=== PATIENT | male | born 1960 | race Caucasian/White ===

== ENCOUNTER 2017-01-08 07:48 | Emergency (ER) | payer MEDICAID ==
[2014-11-14 12:48] VITALS: BMI 25.4
[~2017-01-08 07:48] MED LIST: ATROVENT HFA12.9 GM; CLEOCIN HCL300 MG PO; COMBIVENT RESPIM4 GM INH; FLOMAX0.4 MG PO; HUMULIN R100 U/ML; HYDROCODON-ACE1 EAC7 PO; INDERAL10 MG PO; LANTUS SOL100 UNIT/1 SC; LEVAQUIN500 MG PO; LIPITOR40 MG PO; NITROSTAT0.4 MG SL; PLAVIX75 MG PO; PROAIR HFA8.5 GM INH; PROVENTIL HFA6.7 GM INH
[2017-01-08 09:44] LABS: BASOPHILS 0.6 % (0-2); EOSINOPHILS 7.8 % (0-7); HEMATOCRIT 36.7 % (42.0-54.0); HEMOGLOBIN 13.1 g/dL (13.5-17.5); LYMPHOCYTES 14.7 % (15-50); MCH 34.1 pg (26.0-34.0); MCHC 35.7 g/dL (31.0-37.0); MCV 95.6 fL (80.0-100.0); MEAN PLATELET VOLUME 10.2 fL (7.4-10.4); MONOCYTES 12.2 % (2-11); NEUTROPHILS 64.7 % (40-80); PLATELET COUNT 78 10x3/uL (130-400); RBC 3.84 10x6/uL (4.20-6.10); RDW 12.4 % (11.5-14.5); WBC 3.2 10x3/uL (4.8-10.8)
[2017-01-08 10:06] LABS: ALBUMIN 2.6 g/dL (3.4-5.0); ALKALINE PHOSPHATASE 112 U/L (46-116); ALT (SGPT) 45 U/L (10-68); BILIRUBIN - TOTAL 1.16 mg/dL (0.2-1.3); C-REACTIVE PROTEIN 1.5 mg/dL (0.0-0.9); CALC OSMOLALITY 273 mosm/kg (275-300); CALCIUM 8.2 mg/dL (8.5-10.1); CARBON DIOXIDE 27.1 mmol/L (21.0-32.0); CHLORIDE - SERUM 102 mmol/L (98-107); CREATININE - SERUM 0.8 mg/dL (0.6-1.3); GLUCOSE 233 mg/dL (74-106); POTASSIUM - SERUM 3.4 mmol/L (3.5-5.1); PROTEIN - SERUM 8.1 g/dL (6.4-8.2); SODIUM 134 mmol/L (136-145); UREA NITROGEN 9 mg/dL (7-18); eGFR NON AFRICAN AMERICAN > 90 mL/min (90-120)
[2017-01-08 10:14] LABS: APPEARANCE CLOUDY (CLEAR); BILIRUBIN NEGATIVE (NEGATIVE); COLOR YELLOW (YELLOW); GLUCOSE 100 mg/dL (NEGATIVE); KETONE NEGATIVE (NEGATIVE); LEUKOCYTE ESTERASE TRACE (NEGATIVE); NITRITE NEGATIVE (NEGATIVE); PROTEIN NEGATIVE (NEGATIVE); SPECIFIC GRAVITY 1.015 (1.005-1.020); UROBILINOGEN NORMAL (NORMAL)
[2017-01-08 10:15] LABS: BACTERIA MANY /hpf (NONE SEEN); EPITHELIAL CELLS 0-5 /hpf (0-5); RED CELLS - URINE NONE SEEN /hpf (0-5); WHITE CELLS - URINE 0-5 /hpf (0-5)
== END 2017-01-08 11:06 | disposition home or self-care (01) ==
LOC: D.ER 07:48
PROVIDERS: Emergency Medicine
DX: M54.5 Low back pain (principal); K62.89 Other specified diseases of anus and rectum; E87.6 Hypokalemia; E11.65 Type 2 diabetes mellitus with hyperglycemia; Z79.4 Long term (current) use of insulin; N41.9 Inflammatory disease of prostate, unspecified; I10 Essential (primary) hypertension; F17.200 Nicotine dependence, unspecified, uncomplicated

== ENCOUNTER 2017-01-16 16:30 | Emergency (ER) | payer MEDICAID ==
[2014-11-14 12:48] VITALS: BMI 25.4
[2017-01-16 17:42] LABS: BASOPHILS 0 % (0-2); EOSINOPHILS 3.1 % (0-7); HEMATOCRIT 39.6 % (42.0-54.0); HEMOGLOBIN 13.9 g/dL (13.5-17.5); IMMATURE GRANULOCYTES 0.4 % (0-5); LYMPHOCYTES 14.8 % (15-50); MCH 34.2 pg (26.0-34.0); MCHC 35.1 g/dL (31.0-37.0); MCV 97.3 fL (80.0-100.0); MEAN PLATELET VOLUME 10.7 fL (7.4-10.4); NEUTROPHILS 68.7 % (40-80); PLATELET COUNT 88 10x3/uL (130-400); RBC 4.07 10x6/uL (4.20-6.10); RDW 12.7 % (11.5-14.5); WBC 2.2 10x3/uL (4.8-10.8)
[2017-01-16 17:50] LABS: APPEARANCE CLEAR (CLEAR); BILIRUBIN NEGATIVE (NEGATIVE); COLOR YELLOW (YELLOW); GLUCOSE NEGATIVE (NEGATIVE); KETONE NEGATIVE (NEGATIVE); LEUKOCYTE ESTERASE NEGATIVE (NEGATIVE); NITRITE NEGATIVE (NEGATIVE); PROTEIN NEGATIVE (NEGATIVE); SPECIFIC GRAVITY 1.005 (1.005-1.020); UROBILINOGEN NORMAL (NORMAL)
[2017-01-16 18:18] LABS: ALBUMIN 2.8 g/dL (3.4-5.0); ANION GAP 17.4 mmol/L (8-16); BILIRUBIN - TOTAL 0.79 mg/dL (0.2-1.3); CARBON DIOXIDE 19.6 mmol/L (21.0-32.0); CREATININE - SERUM 1.1 mg/dL (0.6-1.3); PROTEIN - SERUM 8.2 g/dL (6.4-8.2)
== END 2017-01-16 19:57 | disposition home or self-care (01) ==
LOC: D.ER 16:30
PROVIDERS: Emergency Medicine
DX: K59.00 Constipation, unspecified (principal); R10.9 Unspecified abdominal pain; K75.9 Inflammatory liver disease, unspecified; I10 Essential (primary) hypertension; E11.9 Type 2 diabetes mellitus without complications; Z79.4 Long term (current) use of insulin; R51 Headache; R11.2 Nausea with vomiting, unspecified; F17.200 Nicotine dependence, unspecified, uncomplicated

== ENCOUNTER 2017-12-09 08:52 | Outpatient (CLI) | payer MEDICAID ==
[~2017-12-09] VITALS: Ht 165.1 cm; Wt 75.5 kg
[2017-12-09 09:15] LABS: BASOPHILS 0.2 % (0-2); EOSINOPHILS 0.5 % (0-7); HEMATOCRIT 33.3 % (42.0-54.0); HEMOGLOBIN 11.7 g/dL (13.5-17.5); IMMATURE GRANULOCYTES 0.2 % (0-5); LYMPHOCYTES 12.2 % (15-50); MCH 30.7 pg (26.0-34.0); MCHC 35.1 g/dL (31.0-37.0); MCV 87.4 fL (80.0-100.0); MONOCYTES 5.2 % (2-11); NEUTROPHILS 81.7 % (40-80); RBC 3.81 10x6/uL (4.20-6.10); RDW 17.3 % (11.5-14.5); WBC 4.3 10x3/uL (4.8-10.8)
[2017-12-09 09:16] LABS: PLATELET COUNT 134 10x3/uL (130-400)
[2017-12-09 09:24] LABS: INR 1.72 (0.85-1.17); PROTIME 19.6 SECONDS (11.6-15.0)
[2017-12-09 09:26] LABS: CALC OSMOLALITY 250 mosm/kg (275-300); CARBON DIOXIDE 26.1 mmol/L (21.0-32.0); CHLORIDE - SERUM 92 mmol/L (98-107); CREATININE - SERUM 0.8 mg/dL (0.6-1.3); GLUCOSE 125 mg/dL (74-106); POTASSIUM - SERUM 3.8 mmol/L (3.5-5.1); SODIUM 124 mmol/L (136-145); UREA NITROGEN 12 mg/dL (7-18); eGFR NON AFRICAN AMERICAN > 90 mL/min (90-120)
[2017-12-09] MEDS ORDERED: PROTONIX40 MG PO (10:07)
[2017-12-09] MEDS ORDERED: DILAUDID4 MG PO (10:08)
[2017-12-09] MEDS ORDERED: DURAGESIC1 PATCH .7 TRANSDERM (10:09)
[2017-12-09] MEDS ORDERED: ALDACTONE100 MG PO (10:11)
[2017-12-09] MEDS ORDERED: CARAFATE1 G PO (10:13)
[2017-12-09 10:29] VITALS: BP 124/69; Ht 165.1 cm; Wt 75.5 kg
== END 2017-12-09 16:35 | disposition home or self-care (01) ==
LOC: D.SP 08:52
PROVIDERS: General Practice
DX: K74.60 Unspecified cirrhosis of liver (principal); R18.8 Other ascites; Z01.812 Encounter for preprocedural laboratory examination

== ENCOUNTER 2018-01-05 07:21 | Outpatient (CLI) | payer MEDICAID ==
[~2018-01-05] VITALS: Ht 165.1 cm; Wt 72.7 kg
--- NOTE | ~2018-01-05 | HEMODYNAMI ---
PATIENT:ESTRELLA JAMES JR MEDICAL RECORD: [id number] : 58 LOCATION:[facility] ADMISSION DATE: 01/05/18 Generatedon:01/05/201811:57 Patient name: ESTRELLA JAMES Patient #: [id number] SSN: : 1960 Date of study: 01/05/2018 Page: Of Hemodynamic Procedure Report Patient Data Patient Demographics Procedure consent was obtained First Name: ESTRELLA Gender: Male Last Name: JACOB Suffix: [facility] Initial: Casimiro : 1960 Patient #: [id number] Age: 57 year(s) Race: Unknown Additional ID: [id number] Contact details [address]: [address] [place] [address] State: [place] City: [place] Zip code: [address] Past Medical History Allergies Allergen Reaction Date Comments Reported Penicillins 01/05/2018 Admission Admission Data Admission Date: 01/05/2018 Admission Time: 7:21 Procedure Procedure Types Cath Procedure Peripheral Cath Diagnostic Procedure Cath Peripheral Miscellaneous PARACENTESIS WITH GUIDE Procedure Description Procedure Date Procedure Date: 01/05/2018 Procedure Start Time: 11:23 Procedure Staff Name Function Unique Bowen MD Performing Physician Melissa Vela RT Crane Chaser Maggie Lima RN Nurse Procedure Medications Medication Administration Route Dosage Oxygen etCO2 Nasal cannula 4 l/min Lidocaine 1% added to field 20 Fentanyl I.V. 50 mcg Fentanyl I.V. 50 mcg Fentanyl I.V. 50 mcg Fentanyl I.V. 50 mcg Hemodynamics Rest Pre Cath Intra NCS Post Cath Vital Signs Time Heart Resp SPO2 etCO2 NIBP (mmHg) Rhythm Pain Sedation Rate (ipm) (%) (mmHg) Status Level (bpm) 11:22:41 97 12 99 27.8 129/77(104) NSR 0 (11) 9(A) , No pain 11:26:51 98 13 98 24 134/75(106) NSR 0 (11) 9(A) , No pain 11:31:01 97 34 98 19.5 132/75(98) NSR 0 (11) 9(A) , No pain 11:35:11 95 98 26.3 131/74(104) NSR 0 (11) 9(A) , No pain 11:39:19 96 12 98 24.8 129/75(103) NSR 0 (11) 9(A) , No pain 11:43:27 96 11 98 27.1 126/77(100) NSR 0 (11) 9(A) , No pain 11:47:33 97 11 98 25.5 126/76(95) NSR 0 (11) 9(A) , No pain 11:51:38 99 15 97 23.3 132/79(102) NSR 0 (11) 9(A) , No pain 11:55:48 97 10 98 30.8 124/72(102) NSR 0 (11) 9(A) , No pain Medications Time Medication Route Dose Verified Delivered Reason Notes Effectiven ess by by 11:22:04 Oxygen etCO2 4 M J Andrés Serrano Per Nasal l/min MD Clarence CHAVEZ protocol cannula 11:22:15 Lidocaine added 20ml M J Long M J Long Per 1% to vial MD HARDIN protocol field 11:25:00 Fentanyl I.V. 50 M J Long Maggie for ashtyn Lima RN sedation 11:28:20 Fentanyl I.V. 50 M J Long Maggie for ashtyn Lima RN sedation 11:31:58 Fentanyl I.V. 50 M J Long Maggie for ashtyn Lima RN sedation 11:40:52 Fentanyl I.V. 50 M J Long Maggie for ashtyn Lima RN sedation Procedure Log Time Note 11:01:00 CONNECTING TUBE FOR DRAINAGE BAG ([id number]) opened to sterile field. 11:01:01 [id number] 8FR CATH DRAIN TRAY opened to sterile field. 11:01:07 - 11:01:28 Time tracking: Regular hours (M-F 7:00 - 5:00) 11:02:15 Plan of Care:Hemodynamics will remain stable., Cardiac rhythm will remain stable., Comfort level will be maintained., Respiratory function will remain adequate., Patient/ family verbilizes understanding of procedure., Procedure tolerated without complication., Recovers from procedure without complications.. 11:02:23 Patient received from Outpatients to IR Alert and oriented. Tansferred to table in Supine position. 11:02:25 Correct patient and procedure confirmed by team. 11:02:27 Signed procedure consent form obtained from patient. 11:02:36 Pre-procedure instructions explained to patient. 11:02:37 Pre-op teaching completed and patient verbalized understanding. 11:02:39 Family unavailable. 11:02:43 Patient NPO since Midnight. 11:02:59 Patient allergic to Penicillins 11:03:04 - 11:14:28 ----Pre-sedation anethsthesia assessment.---- 11:14:31 Previous problem with sedation/anesthesia? No ? 11:14:34 Snore? Yes 11:14:36 Sleep apnea? No 11:14:38 Deviated septum? No 11:14:40 Opens mouth fully? Yes 11:14:42 Sticks out tongue? Yes 11:14:46 Airway obstruction? No ? but yes to heart disease 11:14:50 Dentures? No ? 11:15:36 Right abdomen area was prepped with chlora-prep and draped in sterile fashion 11::47 Vital chart was started 11:22:04 Oxygen 4 l/min etCO2 Nasal cannula was administered by Maggie Lima RN; Per protocol; 11::15 Lidocaine 1% 20ml vial added to field was administered by Unique Bowen MD; Per protocol; ::28 Physician arrived 11::40 --------ALL STOP TIME OUT------ 11::41 Final Timeout: patient, procedure, and site verified with staff and physician. All members of the team are in agreement. ::03 Procedure started. 11:23:03 Full Disclosure recording started 11:23:09 Local anesthetic to Abdominal area with Lidocaine 1% by Unique Bowen MD.INITIAL ACCESS ONLY 11:25:00 Fentanyl 50 mcg I.V. was administered by Maggie Lima RN; for sedation; 11:28:20 Fentanyl 50 mcg I.V. was administered by Maggie Lima RN; for sedation; 11:31:58 Fentanyl 50 mcg I.V. was administered by Maggie Lima RN; for sedation; 11:40:52 Fentanyl 50 mcg I.V. was administered by Maggie Lima RN; for sedation; 11:56:00 5.3 liters drained from abdomen 11:56:14 Dermabond Pen opened to sterile field. 11:56:33 Tegaderm 4 x 4 ([id number]) opened to sterile field. 11:56:48 Procedure ended.(Physican Out) 11:56:51 Procedure and supply charges have been captured, reviewed, submitted an d are correct. 11:56:54 Report given to Outpatients. 11:57:46 Vital chart was stopped Device Usage Item Name Manufacture Quantity Catalog Hospital Part Current Mini mal Lot# / Number Charge Number Stock Stock Serial# Code CONNECTING TUBE Sunburst 1 [id number] 5 FOR DRAINAGE Scientific BAG ([id number]) [id number] CareFusion 1 [id number] 5 8FR CATH DRAIN TRAY Dermabond Pen [place] 1 [id number] 5 Health Tegaderm 4 x 4 3M 1 [id number] 5 (1626W) Signature Audit [place] Stage Time Signature Unsigned Intra-Procedure 01/05/2018 Melissa Vela 11:57:44 AM RT(R) [id number] [place] [address]
[~2018-01-05 07:21] MED LIST changes: +ALDACTONE100 MG PO; +CARAFATE1 G PO; +DILAUDID4 MG PO; +DURAGESIC1 PATCH .7 TRANSDERM; +PROTONIX40 MG PO
[2018-01-05] MEDS ORDERED: ZOFRAN4 MG PO (09:40)
[2018-01-05 10:17] LABS: BASOPHILS 0.2 % (0-2); EOSINOPHILS 0 % (0-7); HEMATOCRIT 36.4 % (42.0-54.0); HEMOGLOBIN 12.8 g/dL (13.5-17.5); IMMATURE GRANULOCYTES 0.4 % (0-5); LYMPHOCYTES 6.9 % (15-50); MCH 30.2 pg (26.0-34.0); MCHC 35.2 g/dL (31.0-37.0); MCV 85.8 fL (80.0-100.0); MEAN PLATELET VOLUME 10.8 fL (7.4-10.4); MONOCYTES 5.9 % (2-11); NEUTROPHILS 86.6 % (40-80); PLATELET COUNT 149 10x3/uL (130-400); RBC 4.24 10x6/uL (4.20-6.10); RDW 17.6 % (11.5-14.5); WBC 5.4 10x3/uL (4.8-10.8)
[2018-01-05 10:22] VITALS: BP 126/67; Ht 165.1 cm; Wt 72.7 kg
[2018-01-05 10:30] LABS: APTT 32.6 SECONDS (22.8-39.4); INR 1.59 (0.85-1.17); PROTIME 18.5 SECONDS (11.6-15.0)
== END 2018-01-05 13:20 | disposition home or self-care (01) ==
LOC: D.SP 07:21 → D.CT 09:00 → D.SP 13:20
PROVIDERS: Radiology Vascular & Interventional Radiology
DX: K71.51 Toxic liver disease with chronic active hepatitis with ascites (principal)

== ENCOUNTER 2018-01-20 09:34 | Outpatient (CLI) | payer OTHER, MEDICAID ==
[~2018-01-20] VITALS: Ht 165.1 cm; Wt 72.7 kg
--- NOTE | ~2018-01-20 | HEMODYNAMI ---
PATIENT:ESTRELLA JAMES JR MEDICAL RECORD: [id number] : 58 LOCATION:[facility] ADMISSION DATE: 01/20/18 Generatedon:01/20/201813:50 Patient name: ESTRELLA JAMES Patient #: [id number] SSN: : 1960 Date of study: 01/20/2018 Page: Of Hemodynamic Procedure Report Patient Data Patient Demographics Procedure consent was obtained First Name: ESTRELLA Gender: Male Last Name: JACOB Suffix: [facility] Initial: Casimiro : 1960 Patient #: [id number] Age: 57 year(s) Race: Unknown Additional ID: [id number] Contact details Address: [address] [place] [address] State: [place] City: [place] Zip code: [address] Past Medical History Allergies Allergen Reaction Date Comments Reported Penicillins 01/05/2018 Penicillins 01/20/2018 Admission Admission Data Admission Date: 01/20/2018 Admission Time: 9:34 Procedure Procedure Types Cath Procedure Peripheral Cath Diagnostic Procedure Cath Peripheral Miscellaneous Pleurex Pleurex Cath Place w/ Imaging Procedure Description Procedure Date Procedure Date: 01/20/2018 Procedure Start Time: 13:21 Procedure Staff Name Function Sanchez Johns MD Performing Physician Melissa Vela RT Hepatology Physician Maggie Lima RN Nurse Romulo Parra RT Scrub Hanny Knapp RN Nurse Procedure Data Cath Procedure Fluoroscopy Diagnostic fluoroscopy Total fluoroscopy Time: 0.5 time: 0.5 min min Diagnostic fluoroscopy Total fluoroscopy dose: 19 dose: 19 mGy mGy Procedure Medications Medication Administration Route Dosage Lidocaine 1% added to field 20 Heparin Flush Bag added to field 1 bags (1000units/500ml NS) Fentanyl I.V. 50 mcg Fentanyl I.V. 50 mcg Hemodynamics Rest Heart Rate: 102 (bpm) Snapshots Pre Cath Intra NCS Post Cath Vital Signs Time Heart Resp SPO2 etCO2 NIBP (mmHg) Rhythm Pain Sedation Rate (ipm) (%) (mmHg) Status Level (bpm) 13:05:38 103 15 99 30 132/88(115) NSR 0 (11) 10(A) , No pain 13:09:41 103 10 99 30 143/94(116) NSR 0 (11) 10(A) , No pain 13:13:53 103 11 100 30 115/74(90) NSR 0 (11) 10(A) , No pain 13:17:57 101 11 100 30 110/71(87) NSR 0 (11) 10(A) , No pain 13:21:55 105 10 100 30 127/83(107) NSR 0 (11) 10(A) , No pain 13:25:58 106 14 100 30.7 134/85(105) NSR 0 (11) 10(A) , No pain 13:30:04 105 6 100 30.7 114/84(98) NSR 0 (11) 10(A) , No pain 13:34:04 104 10 100 30.7 110/78(105) NSR 0 (11) 10(A) , No pain 13:38:08 101 9 100 31.5 102/67(96) NSR 0 (11) 10(A) , No pain 13:42:07 101 8 100 31.4 107/68(88) NSR 0 (11) 10(A) , No pain 13:46:54 108 12 100 27.7 136/87(106) NSR 0 (11) 10(A) , No pain Medications Time Medication Route Dose Verified Delivered Reason Notes Effec tiveness by by 13:20:01 Lidocaine 1% added 20ml Sanchez Bradford used for to vial Andreas Johns procedure field MD HARDIN 13:20:12 Heparin Flush added 1 Sanchez Bradford used for Bag to bags Andreas Johns procedure (1000units/500ml field MD HARDIN NS) 13:26:00 Fentanyl I.V. 50 Sanchez Gamino for mcg Andreas Knapp RN sedation 13:38:13 Fentanyl I.V. 50 Sanchez Gamino for mcg Andreas Knapp RN sedation Procedure Log Time Note 12:24:00 Use device set IR Diagnostic 12:49:00 Time tracking: Regular hours (M-F 7:00 - 5:00) 12:49:24 Plan of Care:Hemodynamics will remain stable., Cardiac rhythm will remain stable., Comfort level will be maintained., Respiratory function will remain adequate., Patient/ family verbilizes understanding of procedure., Procedure tolerated without complication., Recovers from procedure without complications.. 12:49:32 Patient received from Outpatients to IR Alert and oriented. Tansferred to table in Supine position. 12:49:41 Signed procedure consent form obtained from guardian. 12:50:13 H&P Date Dictated: 01/20/2018 Within 30 days and on chart.. 12:50:22 Pre-procedure instructions explained to patient. 12:50:23 Pre-op teaching completed and patient verbalized understanding. 12:50:24 Pre-op teaching completed and patient verbalized understanding. 12:50:34 Family unavailable. 12:50:37 Patient NPO since Midnight. 12:50:46 Patient allergic to Penicillins 12:51:10 Snore? Yes 12:51:41 Patient diabetic? Yes. 12:51:53 Airway obstruction? Yes copd, cad 12:52:03 - 13:03:55 IV patent on arrival in right thumb with D5/.45%NaCl at KVO. 13:04:18 Right abdomen area was prepped with chlora-prep and draped in sterile fashion 13:04:34 ECG and BP/O2 sat monitors applied to patient. 13:04:36 Vital chart was started 13:04:38 Baseline sample Acquired. 13:04:42 Full Disclosure recording started 13:04:44 - 13:19:20 Physician arrived 13:20:01 Lidocaine 1% 20ml vial added to field was administered by Sanchez collier MD; used for procedure; 13:20:12 Heparin Flush Bag (1000units/500ml NS) 1 bags added to field was administered by Sanchez Johns MD; used for procedure; 13:20:40 --------ALL STOP TIME OUT------ 13:20:41 Final Timeout: patient, procedure, and site verified with staff and physician. All members of the team are in agreement. 13:21:03 Procedure started. 13:21:09 Local anesthetic to Abdominal area with Lidocaine 1% by Sanchez Johns MD.INITIAL ACCESS ONLY 13:22:43 PLEURX PLEURAL cath system ([id number]) opened to sterile field. 13:22:44 Tegaderm 4 x 4 (1626W) opened to sterile field. 13:22:45 Sterile Angiographic Pack opened to sterile field. 13:22:46 Bag Decanter () opened to sterile field. 13:26:00 Fentanyl 50 mcg I.V. was administered by Hanny Knapp RN; for sedation ; 13:38:13 Fentanyl 50 mcg I.V. was administered by Hanny Knapp RN; for sedation ; 13:46:29 6.5 liters drained from abdomen 13:47:34 Procedure ended.(Physican Out) 13:47:48 Fluoroscopy time 00.50 minutes. 13:47:53 Fluoroscopy dose: 19 mGy 13:47:53 Flurop Dose total: 19 13:47:56 Procedure and supply charges have been captured, reviewed, submitted an d are correct. 13:50:09 Vital chart was stopped Device Usage Item Name Manufacture Quantity Catalog Hospital Part Current Minimal Lot# / Number Charge Number Stock Stock Serial# Code PLEURX CareFusion 1 [id number] PLEURAL cath system ([id number]) Tegaderm 4 x 3M 1 [id number] 5 4 (1626W) Sterile Cardinal 1 [id number] 5 Angiographic Health Pack Bag Decanter Microtek 1 [id number] () [employer] Signature Audit [place] Stage Time Signature Unsigned Intra-Procedure 01/20/2018 Melissa Vela 1:50:07 PM RT(R) [address] [id number] [place] [address]
[~2018-01-20 09:34] MED LIST changes: +ZOFRAN4 MG PO
[2018-01-20 10:42] LABS: BASOPHILS 0.2 % (0-2); EOSINOPHILS 0.4 % (0-7); HEMATOCRIT 38.4 % (42.0-54.0); HEMOGLOBIN 13.9 g/dL (13.5-17.5); IMMATURE GRANULOCYTES 0.2 % (0-5); LYMPHOCYTES 9.5 % (15-50); MCH 30.3 pg (26.0-34.0); MCHC 36.2 g/dL (31.0-37.0); MCV 83.7 fL (80.0-100.0); MEAN PLATELET VOLUME 9.1 fL (7.4-10.4); MONOCYTES 4.9 % (2-11); NEUTROPHILS 84.8 % (40-80); RBC 4.59 10x6/uL (4.20-6.10); RDW 17.3 % (11.5-14.5); WBC 4.5 10x3/uL (4.8-10.8)
[2018-01-20 10:48] LABS: PLATELET COUNT 89 10x3/uL (130-400)
[2018-01-20 10:58] LABS: APTT 36.5 SECONDS (22.8-39.4); INR 1.53 (0.85-1.17); PROTIME 17.9 SECONDS (11.6-15.0)
[2018-01-20 10:59] LABS: CALCIUM 7.7 mg/dL (8.5-10.1); CARBON DIOXIDE 24.5 mmol/L (21.0-32.0); CREATININE - SERUM 2.1 mg/dL (0.6-1.3); POTASSIUM - SERUM 4.5 mmol/L (3.5-5.1)
[2018-01-20 11:32] LABS: PLATELET ESTIMATE DECREASED
[2018-01-20 12:32] VITALS: BP 118/67; Ht 165.1 cm; Wt 72.7 kg
== END 2018-01-20 15:30 | disposition home or self-care (01) ==
LOC: D.SP 09:34 → D.CT 11:00 → D.SP 15:30
PROVIDERS: Radiology Diagnostic Radiology
DX: C22.0 Liver cell carcinoma (principal); B19.20 Unspecified viral hepatitis C without hepatic coma; R18.0 Malignant ascites; K74.69 Other cirrhosis of liver; Z01.812 Encounter for preprocedural laboratory examination